=== PATIENT | female | born 1960 ===

== ENCOUNTER → 2019-05-04 | Outpatient (CLI) | payer SELFPAY | END | disposition home or self-care (01) | LOC: PLD 10:31 → LAB SHORT 10:31 | DX: L82.1 Other seborrheic keratosis (principal) | CPT/HCPCS: 88305 ==

== ENCOUNTER 2019-11-13 04:35 | Emergency (ER) | payer OTHER ==
[~2019-11-13] VITALS: Ht 170.2 cm; Wt 86.2 kg
[2019-11-13] MEDS ORDERED: Ventolin/Prove6.7 GM INH (04:56)
[2019-11-13] MEDS ORDERED: PANTOPRAZOLE SO40 M2 PO (04:56)
[2019-11-13] MEDS ORDERED: OXYC5 PO (04:56)
[2019-11-13] MEDS ORDERED: CYCL10 PO (05:36)
[2019-11-13] MEDS ORDERED: HYDR1TAB94 PO (05:36)
[2019-11-13] MEDS ORDERED: PRED20 PO (05:36)
== END 2019-11-13 06:45 | disposition home or self-care (01) ==
LOC: ER 04:35
DX: J45.901 Unspecified asthma with (acute) exacerbation (principal); M54.16 Radiculopathy, lumbar region; K21.9 Gastro-esophageal reflux disease without esophagitis; Z88.2 Allergy status to sulfonamides; Z88.1 Allergy status to other antibiotic agents; Z79.899 Other long term (current) drug therapy
CPT/HCPCS: 71046; 72100; 94644; 99283-25; J7512

== ENCOUNTER 2019-11-27 18:49 | Emergency (ER) | payer SELFPAY ==
[~2019-11-27] VITALS: Ht 170.2 cm; Wt 86.2 kg
[~2019-11-27 18:49] MED LIST: CYCL10 PO; HYDR1TAB94 PO; OXYC5 PO; PANTOPRAZOLE SO40 M2 PO; PRED20 PO; Ventolin/Prove6.7 GM INH
[2019-11-27] MEDS ORDERED: Guaifenesin Wit10 ML PO (22:36)
== END 2019-11-27 23:40 | disposition home or self-care (01) ==
LOC: ER 18:49
DX: R05 Cough (principal); J45.909 Unspecified asthma, uncomplicated; Z88.2 Allergy status to sulfonamides; Z88.1 Allergy status to other antibiotic agents; Z79.899 Other long term (current) drug therapy
CPT/HCPCS: 71046; 94640; 99283-25

== ENCOUNTER 2021-03-28 19:07 | Emergency (ER) | payer SELFPAY ==
[~2021-03-28] VITALS: Ht 170.2 cm; Wt 81.7 kg
[~2021-03-28 19:07] MED LIST changes: +Guaifenesin Wit10 ML PO
[2021-03-28] MEDS ORDERED: GABA300 PO (19:11)
[2021-03-28] MEDS ORDERED: FURO40 PO (19:12)
[2021-03-28] MEDS ORDERED: CENTRUM SILVER1 EAC2 PO (19:12)
[2021-03-28] MEDS ORDERED: IRON18 MG PO (19:13)
[2021-03-28] MEDS ORDERED: FISH OIL 1,2001 EAC7 (19:13)
== END 2021-03-28 20:40 | disposition home or self-care (01) ==
LOC: ER 19:07
DX: M79.81 Nontraumatic hematoma of soft tissue (principal); J45.909 Unspecified asthma, uncomplicated; K21.9 Gastro-esophageal reflux disease without esophagitis; Z88.2 Allergy status to sulfonamides; Z88.1 Allergy status to other antibiotic agents
CPT/HCPCS: 93971; 99283-25

== ENCOUNTER → 2022-10-14 | Outpatient (CLI) | payer OTHER ==
[~2022-10-14] MED LIST changes: +CENTRUM SILVER1 EAC2 PO; +FISH OIL 1,2001 EAC7; +FURO40 PO; +GABA300 PO; +IRON18 MG PO
[2022-10-16 15:10] LABS: HPV 16 Negative (Negative); HPV 18 Negative (Negative); HPV OTHER HR TYPES Negative (Negative)
== END | disposition home or self-care (01) ==
LOC: LAB 19:30 → LAB SHORT 19:30
PROVIDERS: Family Medicine
DX: Z12.4 Encounter for screening for malignant neoplasm of cervix (principal)
CPT/HCPCS: 87624; G0145

== ENCOUNTER → 2024-08-05 | Outpatient (CLI) | payer OTHER ==
[2024-08-05 20:30] LABS: Chlamydia Trachomatis Throat NOT DETECTED (NOT DETECT); Chlamydia Trachomatis Vaginal NOT DETECTED (NOT DETECT); Neisseria Gonorrhoea Throat NOT DETECTED (NOT DETECT); Neisseria Gonorrhoea Vaginal NOT DETECTED (NOT DETECT)
[2024-08-06 12:57] LABS: Bacterial Vaginosis PCR Negative (NEGATIVE); Candida Group, PCR NOT DETECTED (NOT DETECT); Candida glabrata-krusei, PCR NOT DETECTED (NOT DETECT)
== END ==
LOC: LAB SHORT 07:55 → LAB 07:55
PROVIDERS: Physician Assistant
DX: R30.0 Dysuria (principal)
CPT/HCPCS: 81515; 87077; 87086; 87186; 87491; 87591

== ENCOUNTER → 2024-08-13 | Outpatient (CLI) | payer OTHER | LOC: LAB SHORT 09:50 → LAB 09:50 | DX: R30.0 Dysuria (principal) | CPT/HCPCS: 87077; 87086; 87186 ==